=== PATIENT | male | born 1955 | race Caucasian/White ===

== ENCOUNTER 2016-07-09 14:58 | Emergency (ER) | payer BC, OTHER ==
[2016-07-09 15:22] VITALS: BP 174/85
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
== END 2016-07-09 16:36 | disposition home or self-care (01) ==
LOC: VM.ED 14:58
DX: S00.03XA Contusion of scalp, initial encounter (principal); S39.012A Strain of muscle, fascia and tendon of lower back, initial encounter; S29.012A Strain of muscle and tendon of back wall of thorax, initial encounter; I10 Essential (primary) hypertension; E78.5 Hyperlipidemia, unspecified; V59.9XXA Occupant (driver) (passenger) of pick-up truck or van injured in unspecified traffic accident, initial encounter
CPT/HCPCS: 70450; 72070; 72100; 99284